=== PATIENT | male | born 1970 | race Caucasian/White ===

== ENCOUNTER 2021-01-30 23:56 | Emergency (ER) | payer OTHER ==
[2021-01-31 01:30] LABS: BILIRUBIN NEGATIVE (NEGATIVE); BLOOD NEGATIVE Ery/uL (NEGATIVE); CLARITY CLEAR (CLEAR); COLOR YELLOW (YELLOW); GLUCOSE (U) NORMAL (NORMAL); LEUKOCYTES 1+ Leu/uL (NEGATIVE); NITRITE NEGATIVE (NEGATIVE); PROTEIN NEGATIVE (NEGATIVE); SPECIFIC GRAVITY 1.025 (1.001-1.030); UROBILINOGEN 0.2 mg/dL (0.2-1.0)
[2021-01-31 01:34] LABS: BACTERIA TRACE; CALCIUM OXALATE CRYSTALS LARGE; URINARY RBC RARE
[2021-01-31 01:47] LABS: BASOPHIL 1.4 % (0-2); EOSINOPHIL 2.3 % (0-5); HCT 40.3 % (42.0-52.0); HGB 13.1 g/dl (13.2-18.0); LYMPHOCYTE 36.3 % (15-48); MCHC 32.5 g/dL (32.0-36.0); MCV 89.2 fL (78.0-100.0); MONOCYTE 5.4 % (0-12); MPV 10.8 fL (6.0-9.5); NEUTROPHIL 54.1 % (41-80); NRBC 0; PLT 249 K/uL (150-400); RBC 4.52 M/uL (4.70-6.00); RDW 12.6 % (11.5-14.0); WBC 8.7 K/uL (4.0-10.5)
[2021-01-31 02:00] LABS: ALBUMIN 3.3 g/dL (3.4-5.0); BILIRUBIN - TOTAL 0.2 mg/dL (0.2-1.0); BUN/CREAT RATIO (CALC) 14.9 RATIO; CREATININE 1.01 mg/dL (0.67-1.17); GLOBULIN (CALCULATION) 3.1 g/dL; POTASSIUM 3.9 mmol/L (3.5-5.1); TOTAL PROTEIN 6.4 g/dL (6.4-8.2)
[2021-01-31 02:07] LABS: PRO-BNP 45 pg/mL (<125)
[2021-01-31] MEDS ORDERED: MACROBID100 MG PO (03:11)
== END 2021-01-31 03:23 | disposition home or self-care (01) ==
LOC: FER 23:56
PROVIDERS: Emergency Medicine
DX: N39.0 Urinary tract infection, site not specified (principal); E11.65 Type 2 diabetes mellitus with hyperglycemia; F17.290 Nicotine dependence, other tobacco product, uncomplicated; Z20.822 Contact with and (suspected) exposure to COVID-19; Z79.84 Long term (current) use of oral hypoglycemic drugs
CPT/HCPCS: 36415; 71045; 80053; 81001; 83880; 84484; 85025; 93005; J7030; U0002

== ENCOUNTER 2021-04-15 09:24 | Emergency (ER) | payer OTHER ==
[~2021-04-15 09:24] MED LIST: MACROBID100 MG PO
[2021-04-15] MEDS ORDERED: NAPROXEN500 MG PO (10:53)
[2021-04-15] MEDS ORDERED: CYCLOBENZAPRINE10 MG PO (10:53)
== END 2021-04-15 11:03 | disposition home or self-care (01) ==
LOC: FER 09:24
DX: M25.552 Pain in left hip (principal); I10 Essential (primary) hypertension; E11.9 Type 2 diabetes mellitus without complications; F17.290 Nicotine dependence, other tobacco product, uncomplicated; Z79.84 Long term (current) use of oral hypoglycemic drugs; Z79.899 Other long term (current) drug therapy
CPT/HCPCS: 72192

== ENCOUNTER 2021-05-17 01:35 | Emergency (ER) | payer OTHER ==
[~2021-05-17 01:35] MED LIST changes: +CYCLOBENZAPRINE10 MG PO; +NAPROXEN500 MG PO
[2021-05-17 02:13] LABS: BASOPHIL 1.3 % (0-2); EOSINOPHIL 2.1 % (0-5); HGB 13.2 g/dl (13.2-18.0); MCH 28.9 pg (25.0-31.0); MCHC 32.2 g/dL (32.0-36.0); MCV 89.9 fL (78.0-100.0); MONOCYTE 6.7 % (0-12); MPV 10.9 fL (6.0-9.5); NEUTROPHIL 56.6 % (41-80); NRBC 0; PLT 271 K/uL (150-400); RBC 4.56 M/uL (4.70-6.00)
[2021-05-17 02:32] LABS: PRO-BNP 24 pg/mL (<125)
[2021-05-17 02:46] LABS: ALBUMIN 3.5 g/dL (3.4-5.0); BILIRUBIN - TOTAL 0.2 mg/dL (0.2-1.0); GLOBULIN (CALCULATION) 3.2 g/dL; POTASSIUM 3.6 mmol/L (3.5-5.1); TOTAL PROTEIN 6.7 g/dL (6.4-8.2)
== END 2021-05-17 05:04 | disposition home or self-care (01) ==
LOC: FER 01:35
PROVIDERS: Emergency Medicine
DX: E11.42 Type 2 diabetes mellitus with diabetic polyneuropathy (principal); R06.02 Shortness of breath; M54.2 Cervicalgia; I10 Essential (primary) hypertension; F17.290 Nicotine dependence, other tobacco product, uncomplicated
CPT/HCPCS: 36415; 71045; 72125; 80053; 83880; 84484; 85025; 85379; 93005; J1885

== ENCOUNTER 2021-06-08 18:47 | Emergency (ER) | payer OTHER ==
[2021-06-08 20:09] LABS: CORONAVIRUS 2019 SARS-COV-2 NEGATIVE (NEGATIVE); INFLUENZA A NAA NEGATIVE (NEGATIVE)
== END 2021-06-08 21:15 | disposition home or self-care (01) ==
LOC: FER 18:47
PROVIDERS: Emergency Medicine
DX: R06.02 Shortness of breath (principal); R51.9 Headache, unspecified; E11.9 Type 2 diabetes mellitus without complications; Z20.822 Contact with and (suspected) exposure to COVID-19
CPT/HCPCS: 99284; U0002

== ENCOUNTER 2021-06-10 19:02 | Emergency (ER) | payer OTHER ==
[2021-06-11] MEDS ORDERED: ZOFRAN4 M1 PO (05:00)
== END 2021-06-10 21:58 | disposition left against medical advice (07) ==
LOC: FER 19:02
DX: Z20.822 Contact with and (suspected) exposure to COVID-19 (principal); Z53.8 Procedure and treatment not carried out for other reasons
CPT/HCPCS: 71045; 93005

== ENCOUNTER 2021-06-11 00:50 | Emergency (ER) | payer OTHER ==
[2021-06-11 04:15] LABS: BASOPHIL 1.2 % (0-2); EOSINOPHIL 1.7 % (0-5); HCT 43.4 % (42.0-52.0); HGB 14.1 g/dl (13.2-18.0); LYMPHOCYTE 9.6 % (15-48); MCH 29.4 pg (25.0-31.0); MCHC 32.5 g/dL (32.0-36.0); MCV 90.4 fL (78.0-100.0); MONOCYTE 5.8 % (0-12); MPV 10.5 fL (6.0-9.5); NEUTROPHIL 81.4 % (41-80); NRBC 0; PLT 269 K/uL (150-400); RDW 12.8 % (11.5-14.0); WBC 8.9 K/uL (4.0-10.5)
[2021-06-11 04:21] LABS: AMPHETAMINES NEGATIVE (NEGATIVE); BARBITURATES NEGATIVE (NEGATIVE); ECSTASY (MDMA) NEGATIVE (NEGATIVE); MARIJUANA (THC) NEGATIVE (NEGATIVE); METHADONE NEGATIVE (NEGATIVE); OPIATES NEGATIVE (NEGATIVE); OXYCODONE NEGATIVE (NEGATIVE)
[2021-06-11 04:34] LABS: BILIRUBIN - TOTAL 0.2 mg/dL (0.2-1.0); BUN/CREAT RATIO (CALC) 11.4 RATIO; CREATININE 1.05 mg/dL (0.67-1.17); GLOBULIN (CALCULATION) 3.2 g/dL; POTASSIUM 4.2 mmol/L (3.5-5.1); TOTAL PROTEIN 7.2 g/dL (6.4-8.2)
[2021-06-11] MEDS ORDERED: ZOFRAN4 M1 PO (05:00)
== END 2021-06-11 08:23 | disposition home or self-care (01) ==
LOC: FER 00:50
PROVIDERS: Emergency Medicine
DX: U07.1 COVID-19 (principal); R07.89 Other chest pain; E11.9 Type 2 diabetes mellitus without complications; F17.200 Nicotine dependence, unspecified, uncomplicated; Z23 Encounter for immunization; Z79.84 Long term (current) use of oral hypoglycemic drugs
CPT/HCPCS: 36415; 80053; 80305; 84484; 85025; 85379; 93005; J7030; M0245; Q0245; U0002

== ENCOUNTER 2021-06-24 07:17 | Emergency (ER) | payer OTHER ==
[~2021-06-24 07:17] MED LIST changes: +ZOFRAN4 M1 PO
[2021-06-24 08:00] LABS: BASOPHIL 1.6 % (0-2); HCT 41.3 % (42.0-52.0); HGB 13.4 g/dl (13.2-18.0); MCH 28.8 pg (25.0-31.0); MCHC 32.4 g/dL (32.0-36.0); MCV 88.8 fL (78.0-100.0); MONOCYTE 6.1 % (0-12); MPV 10.9 fL (6.0-9.5); NEUTROPHIL 56.5 % (41-80); NRBC 0; PLT 260 K/uL (150-400); RBC 4.65 M/uL (4.70-6.00); RDW 12.5 % (11.5-14.0); WBC 9.9 K/uL (4.0-10.5)
[2021-06-24 08:22] LABS: ALBUMIN 3.6 g/dL (3.4-5.0); BILIRUBIN - TOTAL 0.2 mg/dL (0.2-1.0); BUN/CREAT RATIO (CALC) 16.8 RATIO; CREATININE 0.95 mg/dL (0.67-1.17); GLOBULIN (CALCULATION) 3.1 g/dL; POTASSIUM 3.7 mmol/L (3.5-5.1); TOTAL PROTEIN 6.7 g/dL (6.4-8.2)
== END 2021-06-24 13:34 | disposition home or self-care (01) ==
LOC: FER 07:17
PROVIDERS: Emergency Medicine
DX: U07.1 COVID-19 (principal); E11.9 Type 2 diabetes mellitus without complications; I10 Essential (primary) hypertension; F17.290 Nicotine dependence, other tobacco product, uncomplicated
CPT/HCPCS: 36415; 71046; 80053; 85025

== ENCOUNTER 2021-08-18 17:56 | Emergency (ER) | payer OTHER ==
[2021-08-18 18:42] LABS: BASOPHIL 1.2 % (0-2); EOSINOPHIL 2.3 % (0-5); HCT 39.6 % (42.0-52.0); HGB 13.1 g/dl (13.2-18.0); LYMPHOCYTE 33.6 % (15-48); MCH 29.2 pg (25.0-31.0); MCHC 33.1 g/dL (32.0-36.0); MCV 88.4 fL (78.0-100.0); MONOCYTE 6.5 % (0-12); MPV 10.9 fL (6.0-9.5); NRBC 0; PLT 243 K/uL (150-400); RBC 4.48 M/uL (4.70-6.00); RDW 13.2 % (11.5-14.0); WBC 7.8 K/uL (4.0-10.5)
[2021-08-18 19:02] LABS: ALBUMIN 3.6 g/dL (3.4-5.0); BILIRUBIN - TOTAL 0.2 mg/dL (0.2-1.0); BUN/CREAT RATIO (CALC) 12.1 RATIO; CREATININE 1.07 mg/dL (0.67-1.17); GLOBULIN (CALCULATION) 2.9 g/dL; POTASSIUM 3.7 mmol/L (3.5-5.1); TOTAL PROTEIN 6.5 g/dL (6.4-8.2)
[2021-08-18 19:12] LABS: BILIRUBIN NEGATIVE (NEGATIVE); BLOOD NEGATIVE Ery/uL (NEGATIVE); CLARITY CLEAR (CLEAR); COLOR YELLOW (YELLOW); GLUCOSE (U) NORMAL (NORMAL); LEUKOCYTES TRACE Leu/uL (NEGATIVE); NITRITE NEGATIVE (NEGATIVE); PROTEIN NEGATIVE (NEGATIVE); UROBILINOGEN 0.2 mg/dL (0.2-1.0)
[2021-08-18 19:20] LABS: AMORPHOUS URATES CRYSTALS MODERATE; BACTERIA 1+; URINARY WBC RARE
== END 2021-08-18 20:54 | disposition home or self-care (01) ==
LOC: FER 17:56
PROVIDERS: Emergency Medicine
DX: K42.9 Umbilical hernia without obstruction or gangrene (principal); R06.02 Shortness of breath; N20.0 Calculus of kidney; E11.9 Type 2 diabetes mellitus without complications; F17.200 Nicotine dependence, unspecified, uncomplicated
CPT/HCPCS: 36415; 71045; 80053; 81001; 83880; 84484; 85025; Q9967